=== PATIENT | female | born 1985 | race Caucasian/White ===

== ENCOUNTER 2017-02-10 07:18 | Emergency (ER) | payer MEDICAID, OTHER ==
[~2017-02-10] VITALS: Ht 157.5 cm; Wt 66.0 kg
[2017-02-10 10:28] VITALS: BP 110/60
== END 2017-02-10 10:31 | disposition home or self-care (01) ==
LOC: ER 07:42
DX: M54.5 Low back pain (principal); R51 Headache; Z88.0 Allergy status to penicillin; V49.9XXA Car occupant (driver) (passenger) injured in unspecified traffic accident, initial encounter; Y93.89 Activity, other specified; Y92.89 Other specified places as the place of occurrence of the external cause; Y99.8 Other external cause status
CPT/HCPCS: 99283

== ENCOUNTER 2024-03-03 14:36 | Emergency (ER) | payer MEDICAID ==
[~2024-03-03] VITALS: Ht 157.5 cm; Wt 54.0 kg
[2024-03-03 15:11] VITALS: BP 98/60; PULSE 58; RESP 18; TEMP 97.8; O2SAT 98
[2024-03-03 15:31] LABS: CLARITY URINE CLOUDY (CLEAR); COLOR URINE YELLOW (YELLOW); GLUCOSE URINE NEGATIVE (NEGATIVE); KETONES URINE TRACE (NEGATIVE); LEUKOCYTE ESTERASE URINE TRACE (NEGATIVE); NITRITE URINE NEGATIVE (NEGATIVE); OCCULT BLOOD URINE 2+ (NEGATIVE); PH URINE 7.5 (4.5-8.0); PROTEIN URINE NEGATIVE (NEGATIVE); SPECIFIC GRAVITY URINE 1.011 (1.005-1.030)
[2024-03-03 15:56] LABS: SQUAMOUS EPITHELIAL CELL URINE 2+ /lpf (RARE/1+)
[2024-03-03 15:57] LABS: BACTERIA URINE 3+; WBC URINE 0-2 /hpf (0-2)
[2024-03-03] MEDS ORDERED: DOXY150T8 MT (18:19)
[2024-03-03] MEDS ORDERED: DOXY100C74 MT (18:22)
[2024-03-06 05:12] LABS: CHLAMYDIA TRACHOMATIS NAA Negative (Negative); NEISSERIA GONORRHOEAE NAA Negative (Negative)
== END 2024-03-03 18:48 | disposition home or self-care (01) ==
LOC: ER 14:36
DX: T19.2XXA Foreign body in vulva and vagina, initial encounter (principal); N76.0 Acute vaginitis; Z88.0 Allergy status to penicillin; X58.XXXA Exposure to other specified factors, initial encounter; Y93.89 Activity, other specified; Y92.89 Other specified places as the place of occurrence of the external cause; Y99.8 Other external cause status
CPT/HCPCS: 87491; 87591; 81003; 87086; 87186; 87210; 87077; 99283; Z7610